=== PATIENT | female | born 1950 | race Caucasian/White ===

== ENCOUNTER → 2021-08-07 10:35 | Outpatient (CLI) | payer MEDICARE, SELFPAY ==
[2021-08-07 12:14] LABS: Alanine Aminotransferase 17 IU/L (<35); Albumin 4.7 g/dL (3.5-5.0); Albumin Globulin Ratio 1.5 (1.0-2.8); Alkaline Phosphatase 58 U/L (38-126); Aspartate Aminotransferase 33 IU/L (14-36); BUN Creatinine Ratio 17.5 (6-22); Bilirubin Total 0.7 mg/dL (0.2-1.3); Blood Urea Nitrogen 14 mg/dL (7-17); Calcium 10.4 mg/dL (8.4-10.2); Carbon Dioxide 30 mmol/L (22-32); Chloride 105 mmol/L (98-107); Estimated Glomerular Filt Rate > 60.0 mL/min (>60); Globulin 3.1 g/dL (1.7-4.1); Glucose 91 mg/dL (80-110); HEMOLYSIS < 15 (0-50); Potassium 4.5 mmol/L (3.4-5.1); Sodium 143 mmol/L (137-145); Total Protein 7.8 g/dL (6.3-8.2)
== END ==
PROVIDERS: PCP Registered Nurse Diabetes Educator; Referring Provider Registered Nurse; Visit Provider Registered Nurse
DX: H93.11 Tinnitus, right ear (principal); Z79.899 Other long term (current) drug therapy
CPT/HCPCS: 36415; 80053

== ENCOUNTER → 2021-09-01 08:03 | Outpatient (CLI) | payer MEDICARE, SELFPAY ==
--- NOTE | 2021-09-01 | DI.MG.S_ITS ---
BILATERAL DIGITAL SCREENING MAMMOGRAM 3D/2D WITH CAD: 09/01/2021 CLINICAL: Routine screening. Comparison is made to exams dated: 06/04/2017 mammogram and 03/19/2014 mammogram - outside location. The tissue of both breasts is predominantly fatty. Current study was also evaluated with a Computer Aided Detection (CAD) system. No significant masses, calcifications, or other findings are seen in either breast. There has been no significant interval change. IMPRESSION: NEGATIVE There is no mammographic evidence of malignancy. A 1 year screening mammogram is recommended. This exam was interpreted at Station ID: [id number]. NOTE: For mammograms, a report in lay terms will be sent to the patient. Approximately 15% of breast malignancies will not be visualized mammographically. In the management of a palpable breast mass, a negative mammogram must not discourage biopsy of a clinically suspicious lesion. Electronically Signed By: Prudencio burnett/damian:09/01/2021 08:44:46 letter sent: Normal Exam ACR BI-RADS Category 1: Negative [id number]
== END ==
PROVIDERS: PCP Registered Nurse Diabetes Educator; Referring Provider Registered Nurse Diabetes Educator; Visit Provider Registered Nurse Diabetes Educator
DX: Z12.31 Encounter for screening mammogram for malignant neoplasm of breast (principal)
CPT/HCPCS: 77063; 77067

== ENCOUNTER 2022-12-01 16:20 | Emergency (ER) | payer MEDICARE, OTHER, SELFPAY ==
[2022-12-01 16:43] VITALS: BP 119/72; PULSE 78; RESP 18; TEMP 36.8; O2SAT 96; BMI 24.0
--- NOTE | 2022-12-01 16:51 | DI.RAD.S_ITS ---
PROCEDURE: XR ANKLE RT MIN 3V INDICATIONS: injury TECHNIQUE: 3 views of the ankle were acquired. COMPARISON: None. FINDINGS: Bones: Acute mildly displaced medial and lateral malleolar fractures. Lateral malleolar fractures below the level of the tibial plafond and. Medial malleolar fracture appears to involve the tibial plafond. Postsurgical changes of the foot with medial plate and screws, possible fracture of the fixation plate versus presence of 2 adjacent plates. Soft tissues: A tibiotalar effusion is present. Soft tissue swelling is present about the ankle. IMPRESSION: 1. Acute mildly displaced medial and lateral malleolar fractures. 2. Postsurgical changes of the foot with medial plate and screws, possible fracture of the fixation plate versus presence of 2 adjacent fixation plates or artifact related to obliquity. Dedicated foot radiographs could be obtained as clinically indicated. Dictated by: Harinder Yeager M.D. on 12/01/2022 at 17:56 Approved by: Harinder Yeager M.D. on 12/01/2022 at 18:02
[2022-12-01 18:21] VITALS: PULSE 68
[2022-12-01 18:25] VITALS: BP 133/75; PULSE 71; RESP 18; O2SAT 96
[2022-12-01] MEDS: ACETAMINOPHEN 325 MG TABLET 975 MG PO (18:57)
--- NOTE | 2022-12-01 19:30 | ED_ITS ---
HPI - Extremity Injury (Lower) General Chief Complaint: Extremity Injury, Lower Stated Complaint: Fall, R ankle pain Time Seen by Provider: 12/01/22 19:30 Source: patient Mode of arrival: Family Vehicle History of Present Illness HPI Narrative: This is a 72-year-old female who presents with complaint of right ankle injury. She was out feeding her chickens when she thinks she inverted her ankle but she is not sure she states the ground was sort of steep and sloping. She fell but states she did not injure anything else. She would pain in the ankle out of swelling on the lateral side. Patient states some numbness tingling but better now. Patient states she takes gabapentin for pain. She has had foot surgery before and states she has 2 plates in her foot, as well as some screws. Patient denies any weakness. She states was painful to try to weightbear on. She states no pain in the foot slowly in the ankle. No known drug allergies. Related Data Previous Rx's Medication Instructions Recorded gabapentin 300 mg capsule See Rx Instructions PO .COMPLEX 08/07/21 #270 caps zolpidem 5 mg tablet (Ambien) 5 mg PO BEDTIME PRN sleep #10 tabs 08/20/21 Allergies Allergy/AdvReac Type Severity Reaction Status Date / Time No Known Drug Allergies Allergy Verified 12/01/22 16:50 Review of Systems Review of Systems ROS Unobtainable: All systems reviewed & are unremarkable except as noted in HPI and below Patient History Medical History Cataracts, bilateral (~2015) Hearing loss Hepatitis (~1979) Insomnia Medication management Skin cancer (~2014) Tinnitus, right ear Vision disorder Surgical History Anesthesia History of eye surgery (~04/2020) History of foot surgery (~03/2003) History of pelvic surgery (~04/2008) Family History Father Cancer Mother COPD (chronic obstructive pulmonary disease) Social History Smoking Status: Never smoker Smoking Status: Never smoker alcohol intake frequency: a few times a month Substance Use Type: does not use Exam Narrative Exam Narrative: GENERAL: Alert and oriented x three, well-nourished female in mild distress. HEENT: Head normocephalic, atraumatic, EOMI, pupils reactive, face symmetric, moist mucous membranes NECK: Supple, full range of motion CARDIOVASCULAR: Regular rate and rhythm without murmurs, rubs or gallops. RESPIRATORY: Breath sounds equal bilaterally, no wheezes rales or rhonchi. ABDOMEN: Soft, nontender. Normoactive bowel sounds all 4 quadrants. No guarding or rebound, rigidity, no mass EXTREMITIES: Normal range of motion of upper right leg, patient has swelling pain over the right lateral malleoli.. Neurovascularly intact. Sensation to light touch through all 5 toes. Patient splinted by nursing. Neurovascularly intact afterwards. NEUROLOGICAL: Cranial nerves II through XII grossly intact. Moving all extremities SKIN: Warm, dry, no petechiae, no rashes or lesions. Initial Vital Signs Initial Vital Signs: Vital Signs Temperature 98.3 F 12/01/22 16:43 Pulse Rate 78 12/01/22 16:43 Respiratory Rate 18 12/01/22 16:43 Blood Pressure 119/72 12/01/22 16:43 Pulse Oximetry 96 12/01/22 16:43 Oxygen Delivery Method Room Air 12/01/22 16:43 Course Orders Ordered: Discontinued Medications Acetaminophen (Acetaminophen 325 Mg Tablet) 975 mg PO NOW ONE Stop: 12/01/22 18:54 Last Admin: 12/01/22 18:57 Dose: 975 mg Documented By: SREE Vital Signs Vital signs: Vital Signs - 8 hr 12/01/22 16:43 12/01/22 18:21 12/01/22 18:25 Temperature 98.3 F Pulse Rate 78 71 Pulse Rate [Right] 68 Respiratory Rate 18 18 Blood Pressure 119/72 133/75 Pulse Oximetry 96 96 Oxygen Delivery Method Room Air Room Air MDM - Extremity Injury (Lower) Imaging Data Extremity x-ray #1: Radiologist's Impression: [address] [address] XRay Report Signed Patient: April Poole MR#: [id number] : 1950 Acct:[id number] Age/Sex: 72 / F Date of Service: 12/01/22 Loc: ED Accession Number: [id number] ?? Procedure: XR ankle RT min 3V Ordering Provider: Ernestine Pringle D.O. PROCEDURE:? XR ANKLE RT MIN 3V ? INDICATIONS:? injury ? TECHNIQUE:? 3 views of the ankle were acquired.? ? COMPARISON:? None. ? FINDINGS:? ? Bones:? Acute mildly displaced medial and lateral malleolar fractures.? Lateral malleolar fractures below the level of the tibial plafond and.? Medial malleolar fracture appears to involve the tibial plafond.? Postsurgical changes of the foot with medial plate and screws, possible fracture of the fixation plate versus presence of 2 adjacent plates. ? Soft tissues:? A tibiotalar effusion is present.? Soft tissue swelling is present about the ankle. ? ? IMPRESSION:? 1. Acute mildly displaced medial and lateral malleolar fractures. 2. Postsurgical changes of the foot with medial plate and screws, possible fracture of the fixation plate versus presence of 2 adjacent fixation plates or artifact related to obliquity.? Dedicated foot radiographs could be obtained as clinically indicated.? Dictated by: Harinder Yeager M.D. on 12/01/2022 at 17:56 ? ? Approved by: Harinder Yeager M.D. on 12/01/2022 at 18:02?? MDM Narrative Medical decision making narrative: A 72-year-old female with right ankle pain who is found to have bilateral malleoli fracture of the right ankle. Patient placed in posterior splint and stirrup she is neurovascularly intact. Question of 2 plates on her imaging patient notes she does have 2 plates in her foot. Did not have any foot pain so dedicated for x-ray was not obtained. Patient states she feels she can manage with home pain medication she has left over from a surgery and Tylenol. Splint directions, return precautions. Patient was given crutches here but also has a walker at home. Referral to Orthopedic surgery and specifically foot and ankle orthopedic. Discharge Plan Departure Patient Disposition: Home Clinical Impression: Ankle fracture, right Instructions: DI for Ankle Fracture Activity Restrictions/Additional Instructions: Follow-up with orthopedic surgery, please call tomorrow morning to set up an appointment. Dr. Oxana Marmolejo is the foot and ankle specialist was also an orthopedic surgeon with this group. Use crutches and/or a walker with nonweightbearing until seen by Orthopedic surgery. You may take Tylenol up to a 1000 mg every 6 hours and/or ibuprofen to 600 mg every 6 hours as needed for pain Splint Care: Keep splint clean and dry. Elevated affected body part to decrease swelling. OK to use ice pack on the affected body part. Use for 15-20 minutes each time, for 5-6x per day. If you develop worsening pain, numbness, tingling, discoloration of the affected body part, loosen the splint by loosening the JANIA wrap, and either see your doctor for an urgent re-assessment, or return to the Emergency Department. Return to the Emergency Department for any new or worsening symptoms. Prescriptions: No Action gabapentin 300 mg capsule See Rx Instructions PO .COMPLEX Qty: 270 1RF Rx Instructions: 300mg in am and 600mg at HS zolpidem [Ambien] 5 mg tablet 5 mg PO BEDTIME PRN (Reason: sleep) Qty: 10 0RF Referrals: Oxana Marmolejo MD [Physician] - Balaji Gonzales ARNP [Primary Care Provider] - Pearl Chou MD [Physician] - Stand Alone Forms: Patient Portal/API
== END 2022-12-01 19:56 | disposition home or self-care (01) ==
PROVIDERS: Emergency Provider Emergency Medicine; PCP Registered Nurse Diabetes Educator
DX: S82.841A Displaced bimalleolar fracture of right lower leg, initial encounter for closed fracture (principal); W18.30XA Fall on same level, unspecified, initial encounter
CPT/HCPCS: 29515; 73610; 99283

== ENCOUNTER → 2023-09-07 11:34 | Outpatient (CLI) | payer MEDICARE, OTHER, SELFPAY ==
--- NOTE | 2023-09-07 11:37 | DI.MRI.S_ITS ---
PROCEDURE: MR BRAIN (IAC) WWO CON INDICATIONS: Tinnitus, right ear TECHNIQUE: Noncontrast sagittal T1 spin echo, axial FLAIR, axial gradient echo, axial diffusion and ADC through the brain. Axial thin-slice 3D CISS, coronal TruFISP, axial T1 spin echo with fat saturation through the internal auditory canals. After the administration of contrast, thin slice axial and coronal T1 spin echo with fat saturation through the internal auditory canals, and axial and coronal and sagittal T1 spin echo with fat saturation through the brain. COMPARISON: None. FINDINGS: Image quality: Excellent. Cerebellopontine angles: No cerebellopontine angle masses. Inner ear structures appear normally formed. No suspicious enhancement in the internal auditory canal or along the course of the 7th cranial nerve. CSF spaces: Ventricles are normal in size and shape. No extra-axial fluid collections. Basal cisterns are patent. Brain: No intracranial bleeds or mass effects. Osuna-white matter interface is intact. Age-related global volume loss and chronic microvascular ischemic changes. No abnormal intracranial enhancement. Diffusion weighted images demonstrate no acute ischemic insults. Brainstem appears normal. Vertebrobasilar dolichoectasia. Skull and face: Calvarial marrow signal is normal. Orbits appear normal. Sinuses: Sinuses and mastoids are clear. IMPRESSION: No cause for patient's symptoms is identified. The cerebellopontine angles and internal auditory canals are normal in appearance without mass or abnormal enhancement. No acute intracranial abnormalities. Age-related global volume loss and chronic microvascular ischemic changes. Dictated by: Renard Giron M.D. on 09/07/2023 at 14:18 Approved by: Renard Giron M.D. on 09/07/2023 at 14:21
== END ==
LOC: MRI 11:34
PROVIDERS: PCP Registered Nurse Diabetes Educator; Referring Provider Otolaryngology; Visit Provider Otolaryngology
DX: H93.11 Tinnitus, right ear (principal)
CPT/HCPCS: 70553; A9579

== ENCOUNTER → 2024-08-23 08:08 | Outpatient (CLI) | payer MEDICARE, OTHER, SELFPAY ==
--- NOTE | 2024-08-23 08:13 | DI.RAD.S_ITS ---
PROCEDURE: XR DEXA AXIAL SKELETON INDICATIONS: MENOPAUSAL DISORDER COMPARISON: None. FINDINGS: Lumbar Spine: Bone mineral density 0.85 g/cm2, T score -1.8,. Left Femoral Neck: Bone mineral density 0.61 g/cm2, T score -2.2. Left Hip: Bone mineral density 0.67 g/cm2, T score -2.2,. Fracture Risk Calculation (when applicable): 10-year fracture risk of a major osteoporotic fracture 14 percent and of a hip fracture 4 percent. (T score greater or equal to -1.0 to: NORMAL) (T score from -1.1 to -2.4: OSTEOPENIA) (T score less than or equal to -2.5: OSTEOPOROSIS) IMPRESSION: Osteopenia, with elevated fracture risk as above. Follow-up guidelines as follows: Osteoporosis: Consider a repeat DEXA and Vertebral Fracture Assessment (VFA) exam in 2 years or sooner if medically necessary, to reassess this patient's status. Osteopenia: Consider a repeat DEXA in 2-3 years to reassess this patient's status, or if there is a new clinical indication. Normal: Consider a repeat DEXA in 5 years or sooner, or if there is a new clinical indication. All treatment decisions require clinical judgment and consideration of individual patient factors, including patient preferences, comorbidities, previous drug use, risk factors not captured in the FRAX model (e.g., frailty, falls, vitamin D deficiency, increased bone turnover, interval significant decline in bone density ) and possible under- or over-estimation of fracture risk by FRAX. In addition, the NOF Guide recommends that FDA-approved medical therapies be considered in postmenopausal women and men age >= 50 years with a: * Hip or vertebral (clinical or morphometric) fracture * T-score of <=-2.5 at the spine or hip * Ten-year fracture probability by FRAX of >= 3% for hip fracture or >=20% for major osteoporotic fracture. Dictated by: Michael Islas M.D. on 08/23/2024 at 14:38 Approved by: Michael Islas M.D. on 08/23/2024 at 14:39
--- NOTE | 2024-08-23 08:13 | DI.MG.S_ITS ---
BILATERAL DIGITAL SCREENING MAMMOGRAM 3D/2D WITH CAD: 08/23/2024 CLINICAL: Routine screening. Comparison is made to exams dated: 09/01/2021 mammogram - [facility], 06/04/2017 mammogram, and 03/19/2014 mammogram - outside location. The breasts are almost entirely fatty (category a/<25% glandular tissue). Current study was also evaluated with a Computer Aided Detection (CAD) system. There is a benign focal asymmetry in the right breast. No significant masses, calcifications, or other findings are seen in either breast. There has been no significant interval change. IMPRESSION: BENIGN There is no mammographic evidence of malignancy. A 1 year screening mammogram is recommended. Based on the Tyrer Cuzick model (a risk assessment model) the patient's lifetime risk is 2.1% and her 10 year risk is 2.1%. According to the ACR, ACS, and NCCN guidelines, an annual breast MRI exam along with mammogram is recommended if the patient's lifetime risk is 20% or greater. This exam was interpreted at Station ID: [id number]. NOTE: For mammograms, a report in lay terms will be sent to the patient. Approximately 15% of breast malignancies will not be visualized mammographically. In the management of a palpable breast mass, a negative mammogram must not discourage biopsy of a clinically suspicious lesion. Electronically Signed By: Prudencio burnett/damian:08/23/2024 10:42:04 letter sent: Normal Exam ACR BI-RADS Category 2: Benign
[2024-08-23 10:12] LABS: Add Manual Diff / Slide Review NO; Basophils Absolute Auto 0 /uL (0-100); Basophils Percent Auto 0.4 % (0-2); Eosinophils Absolute Auto 100 /uL (0-450); Hematocrit 41.5 % (36-46); Lymphocytes Absolute Auto 900 /uL (1100-4500); Lymphocytes Percent Auto 15.5 % (25-40); Mean Corpuscular HGB Conc 33.6 % (30-36); Mean Corpuscular Hemoglobin 29.4 PG (26-34); Mean Corpuscular Volume 87.5 fL (80-100); Monocytes Absolute Auto 400 /uL (0-900); Neutrophils Absolute Auto 4600 /uL (1500-7000); Neutrophils Percent Auto 77.1 % (50-75); Platelet Count 147 X10^3/uL (150-400); Red Blood Cell Count 4.75 X10^6/uL (4.0-5.2); Red Cell Distribution Width 13.4 % (11.6-14.8)
[2024-08-23 10:32] LABS: Alanine Aminotransferase 19 IU/L (<35); Albumin 4.4 g/dL (3.5-5.0); Albumin Globulin Ratio 1.6 (1.0-2.8); Alkaline Phosphatase 64 U/L (38-126); Aspartate Aminotransferase 31 IU/L (14-36); BUN Creatinine Ratio 20.3 (6-22); Bilirubin Total 0.3 mg/dL (0.2-1.3); Blood Urea Nitrogen 15 mg/dL (7-17); Carbon Dioxide 27 mmol/L (22-32); Chloride 105 mmol/L (98-107); Cholesterol 199 mg/dL (140-199); Estimated Glomerular Filt Rate > 60 mL/min (>60); Globulin 2.7 g/dL (1.7-4.1); Glucose 86 mg/dL (80-110); HDL Cholesterol 55 mg/dL (40-60); HEMOLYSIS < 15 (0-50); LDL Cholesterol Calculated 106 mg/dL (<100); Potassium 4.2 mmol/L (3.4-5.1); Sodium 141 mmol/L (137-145); Total Protein 7.1 g/dL (6.3-8.2); Triglycerides 189 mg/dL (35-150)
== END ==
PROVIDERS: PCP Nurse Practitioner Family; Referring Provider Nurse Practitioner Family; Visit Provider Nurse Practitioner Family
DX: Z12.31 Encounter for screening mammogram for malignant neoplasm of breast (principal); M85.89 Other specified disorders of bone density and structure, multiple sites; D69.6 Thrombocytopenia, unspecified; R92.313 Mammographic fatty tissue density, bilateral breasts; Z00.00 Encounter for general adult medical examination without abnormal findings; N95.9 Unspecified menopausal and perimenopausal disorder
CPT/HCPCS: 36415; 77063; 77067; 77080; 80053; 80061; 85025

== ENCOUNTER → 2025-01-31 10:16 | Outpatient (CLI) | payer MEDICARE, OTHER, SELFPAY | PROVIDERS: PCP Nurse Practitioner Family; Visit Provider Nurse Practitioner Family | DX: R30.0 Dysuria (principal) | CPT/HCPCS: 81002; 87086 ==

== ENCOUNTER → 2025-03-04 15:14 | Outpatient (CLI) | payer MEDICARE, OTHER, SELFPAY ==
--- NOTE | 2025-03-04 09:28 | DI.MRI.S_ITS ---
PROCEDURE: MR HEAD/BRAIN WO/W CON INDICATIONS: TINNITUS OF RIGHT EAR TECHNIQUE: Noncontrast sagittal T1 spin echo, axial T2 fast spin echo, axial FLAIR, axial gradient echo, axial diffusion and ADC through the brain. Axial/sagittal/coronal 3-D CISS, thin-slice axial T1 spin echo with fat saturation through the skull base. After the administration of contrast, axial and coronal thin-slice T1 spin echo with fat saturation through the skull base, axial and coronal and sagittal T1 spin echo with fat saturation through the brain. .[facility], MR, MR IAC (BRAIN) WWO CON, 09/07/2023, 11:54. N: FINDINGS: Image quality: Excellent. Internal auditory canals: Normal in appearance. No masses or abnormal enhancement. CSF spaces: Ventricles are normal in size and shape. No extra-axial fluid collections. Basal cisterns are patent. Brain: No intracranial bleeds or mass effects. No abnormal intracranial enhancement. Diffusion weighted images show no acute ischemic insults. Osuna-white matter interface is intact. Brainstem is normal. Normal intravascular flow voids are present. Skull and face: Calvarial marrow signal is normal. Bilateral lens replacements. Otherwise, the orbits are unremarkable. Sinuses: Sinuses and mastoids appear clear. IMPRESSION: Normal appearance of the internal auditory canals. No acute intracranial abnormalities or abnormal intracranial enhancement. Age-related global volume loss and chronic microvascular ischemic changes. Dictated by: Renard Giron M.D. on 03/05/2025 at 8:44 Approved by: Reanrd Giron M.D. on 03/05/2025 at 8:50
== END ==
PROVIDERS: PCP Nurse Practitioner Family; Referring Provider Registered Nurse Emergency
DX: H93.11 Tinnitus, right ear (principal)
CPT/HCPCS: 70553; A9579